=== PATIENT | female | born 1995 | race Caucasian/White ===

== ENCOUNTER 2018-05-20 15:47 | Emergency (ER) | payer OTHER, SELFPAY ==
--- NOTE | 2018-05-20 15:58 | ED.DIZZY ---
HPI - Dizziness <FELIPE Hollis - Last Filed: 05/20/18 21:57> General Chief Complaint: Dizziness Stated Complaint: Dizziness Time Seen by Provider: 05/20/18 15:57 Source: patient Mode of arrival: EMS Limitations: no limitations History of Present Illness HPI Narrative: 22-year-old female with history of having multiple syncopal events over the past couple of months here for complaint of having a presyncopal event this afternoon. She states that she was at the [facility] for a appointment today when she walked outside to her vehicle and she sat down in the vehicle and felt like she was going to have a syncopal episode. She denies that she actually had a loss of any consciousness but felt that she was going to for several minutes. She reports that she walked back to the hospital and they sent her here via ambulance for further evaluation. She denies having any headache. No fevers or chills. No shortness of breath no chest pain. She is currently being and evaluated by Cardiology with a echo cardiogram scheduled for tomorrow. She denies any stressors for her symptoms. She states she has not been working outside she states that she has been having adequate fluid intake. No nausea or vomiting. complaint: near syncope Related Data Home Medications Medication Instructions Recorded Confirmed No Known Home Medications 05/20/18 05/20/18 Allergies Allergy/AdvReac Type Severity Reaction Status Date / Time No Known Drug Allergies Allergy Verified 05/20/18 17:12 Review of Systems <FELIPE Hollis - Last Filed: 05/20/18 21:57> Constitutional Denies chills, Denies fatigue, Denies fever(s), Denies lethargy and Denies weakness Eyes Denies change in vision, Denies eye discharge, Denies irritation and Denies loss of vision ENT Ears, Nose, Mouth, and Throat: Denies change in voice, Denies neck pain and Denies sore throat Cardiovascular Denies dyspnea and Denies dyspnea on exertion Comments: Presyncope Respiratory Denies cough, Denies dyspnea, Denies dyspnea on exertion and Denies wheezing Gastrointestinal Gastrointestinal: Denies abdominal pain, Denies change in bowel habits, Denies diarrhea, Denies nausea and Denies vomiting Genitourinary Denies hematuria, Denies flank pain, Denies urinary incontinence and Denies urinary urgency Musculoskeletal Denies neck pain Integumentary/Breasts Denies pruritus, Denies erythema, Denies rash and Denies wounds Neurologic Denies confusion, Denies loss of vision and Denies weakness Psychiatric Denies anxiety, Denies confusion, Denies depression, Denies homicidal ideation and Denies suicidal ideation Endocrine Denies fatigue and Denies flushing Hematologic/Lymphatic Denies easy bruising Allergic/Immunologic Denies wheezing Exam <FELIPE Hollis - Last Filed: 05/20/18 21:57> Initial Vital Signs Initial Vital Signs: Vital Signs Temperature 99.0 F 05/20/18 15:59 Pulse Rate 79 05/20/18 15:59 Respiratory Rate 18 05/20/18 15:59 Blood Pressure 107/72 05/20/18 15:59 Pulse Oximetry 98 05/20/18 15:59 Const General: cooperative and well developed Nutritional Appearance: well nourished Orientation: alert, awake, oriented x3 and not confused HENAK Head: normal to inspection, normocephalic and atraumatic Mouth: oral mucosae normal, oropharynx normal and moist mucous membranes Eyes Conjunctivae: conjunctivae normal Sclera: sclerae normal Pupils: PERRL EOM: EOM intact bilaterally Neck Neck: normal visual inspection, trachea midline, No lymphadenopathy, No midline deformity and No JVD Lymphatic: No lymphedema Resp Effort & Inspection: normal respiratory effort, able to speak in complete sentences, no respiratory distress and no use of accessory muscles Auscultation: clear to auscultation bilaterally, no rales, no rhonchi and no wheezes Cardio Rate: regular rate Rhythm: regular rhythm Heart Sounds: no click, no gallops, no murmurs and no rubs Skin General: no rashes or lesions noted, No jaundice and No petechiae Neuro General: alert, oriented x3, gait normal and no focal motor deficits Speech: speech normal <Jorge Padilla DO - Last Filed: 05/21/18 01:43> Initial Vital Signs Initial Vital Signs: Vital Signs Temperature 99.0 F 05/20/18 15:59 Pulse Rate 79 05/20/18 15:59 Respiratory Rate 18 05/20/18 15:59 Blood Pressure 107/72 05/20/18 15:59 Pulse Oximetry 98 05/20/18 15:59 Course <FELIPE Hollis - Last Filed: 05/20/18 21:57> Orders Ordered: ED Orders 05/20/18 17:30 Urine Drug Screen, Rapid Stat 05/20/18 17:36 Comprehensive Metabolic Panel Stat Magnesium Stat Troponin & CK Cardiac Panel Stat 05/20/18 18:40 Troponin I Stat Discontinued Medications Sodium Chloride (Normal Saline 0.9%) 1,000 mls @ 1,000 mls/hr IV BOLUS ONE Stop: 05/20/18 17:35 Last Infusion: 05/20/18 18:15 Dose: 0 mls/hr Admin: 05/20/18 17:00 Dose: 1,000 mls/hr Vital Signs - 8 hr 05/20/18 18:39 05/20/18 19:50 05/20/18 19:51 Pulse Rate 56 L 76 Pulse Rate [Orthostatic Lying] 76 Pulse Rate [Orthostatic Sitting] 82 Pulse Rate [Orthostatic Standing] 77 Respiratory Rate 16 14 Blood Pressure [Orthostatic Lying] 109/57 L Blood Pressure [Orthostatic Sitting] 108/66 Blood Pressure [Orthostatic Standing] 93/60 Blood Pressure [Right Arm] 115/49 L 109/57 L Pulse Oximetry 100 100 <Jorge Padilla DO - Last Filed: 05/21/18 01:43> Orders Ordered: ED Orders 05/20/18 17:30 Urine Drug Screen, Rapid Stat 05/20/18 17:36 Comprehensive Metabolic Panel Stat Magnesium Stat Troponin & CK Cardiac Panel Stat 05/20/18 18:40 Troponin I Stat Discontinued Medications Sodium Chloride (Normal Saline 0.9%) 1,000 mls @ 1,000 mls/hr IV BOLUS ONE Stop: 05/20/18 17:35 Last Infusion: 05/20/18 18:15 Dose: 0 mls/hr Admin: 05/20/18 17:00 Dose: 1,000 mls/hr Vital Signs - 8 hr 05/20/18 18:39 05/20/18 19:50 05/20/18 19:51 Pulse Rate 56 L 76 Pulse Rate [Orthostatic Lying] 76 Pulse Rate [Orthostatic Sitting] 82 Pulse Rate [Orthostatic Standing] 77 Respiratory Rate 16 14 Blood Pressure [Orthostatic Lying] 109/57 L Blood Pressure [Orthostatic Sitting] 108/66 Blood Pressure [Orthostatic Standing] 93/60 Blood Pressure [Right Arm] 115/49 L 109/57 L Pulse Oximetry 100 100 MDM - Dizziness <Don ZamoranoFELIPE - Last Filed: 05/20/18 21:57> Lab Data Result diagrams: 05/20/18 16:37 05/20/18 17:36 Lab Results 05/20/18 05/20/18 05/20/18 Range/Units 16:37 17:30 17:36 WBC 12.2 H (4.5-11.0) X10^3/uL RBC 5.19 (4.0-5.2) X10^6/uL Hgb 14.3 (12.0-16.0) g/dL Hct 42.2 (36-46) % MCV 81.4 (80-100) fL MCH 27.5 (26-34) PG MCHC 33.7 (30-36) % RDW 15.1 H (11.6-14.8) % Plt Count 299 (150-400) X10^3/uL Neut % (Auto) 59.4 (50-75) % Lymph % (Auto) 24.9 L (25-40) % [place] % (Auto) 10.0 (3-14) % Eos % (Auto) 5.2 H (2-4) % Baso % (Auto) 0.5 (0-2) % Neut # (Auto) 7200 H (6788-4471) /uL Sodium 142 (137-145) mmol/L Potassium 4.1 (3.4-5.1) mmol/L Chloride 100 (98-107) mmol/L Carbon Dioxide 30 (22-32) mmol/L BUN 12 (7-17) mg/dL Creatinine 0.70 (0.52-1.04) mg/dL Estimated GFR > 60.0 (>60) mL/min BUN/Creatinine Ratio 17.1 (6-22) Glucose 83 (70-100) mg/dL Calcium 9.8 (8.4-10.2) mg/dL Magnesium 1.9 (1.6-2.3) mg/dL Total Bilirubin 0.6 (0.2-1.3) mg/dL AST 25 (14-36) IU/L ALT 20 (9-52) IU/L Alkaline Phosphatase 64 (38-126) U/L Total Creatine Kinase 51 (30-135) U/L CK-MB (CK-2) TNP Troponin I < 0.012 (0.01-0.034) ng/mL Total Protein 8.1 (6.3-8.2) g/dL Albumin 4.8 (3.5-5.0) g/dL Globulin 3.3 (1.7-4.1) g/dL Albumin/Globulin Ratio 1.5 (1.0-2.8) Urine Opiates Screen Negative (Negative) Ur Oxycodone Screen Negative (Negative) Urine Methadone Screen Negative (Negative) Ur Barbiturates Screen Negative (Negative) U Tricyclic Antidepress Negative (Negative) Ur Phencyclidine Scrn Negative (Negative) Ur Amphetamines Screen Negative (Negative) U Methamphetamines Scrn Negative (Negative) Ur MDMA Scrn (Ecstasy) Negative (Negative) U Benzodiazepines Scrn Negative (Negative) Urine Cocaine Screen Negative (Negative) U Marijuana (THC) Screen Negative (Negative) 05/20/18 Range/Units 18:40 WBC (4.5-11.0) X10^3/uL RBC (4.0-5.2) X10^6/uL Hgb (12.0-16.0) g/dL Hct (36-46) % MCV (80-100) fL MCH (26-34) PG MCHC (30-36) % RDW (11.6-14.8) % Plt Count (150-400) X10^3/uL Neut % (Auto) (50-75) % Lymph % (Auto) (25-40) % [place] % (Auto) (3-14) % Eos % (Auto) (2-4) % Baso % (Auto) (0-2) % Neut # (Auto) (9281-2464) /uL Sodium (137-145) mmol/L Potassium (3.4-5.1) mmol/L Chloride (98-107) mmol/L Carbon Dioxide (22-32) mmol/L BUN (7-17) mg/dL Creatinine (0.52-1.04) mg/dL Estimated GFR (>60) mL/min BUN/Creatinine Ratio (6-22) Glucose (70-100) mg/dL Calcium (8.4-10.2) mg/dL Magnesium (1.6-2.3) mg/dL Total Bilirubin (0.2-1.3) mg/dL AST (14-36) IU/L ALT (9-52) IU/L Alkaline Phosphatase (38-126) U/L Total Creatine Kinase (30-135) U/L CK-MB (CK-2) Troponin I < 0.012 (0.01-0.034) ng/mL Total Protein (6.3-8.2) g/dL Albumin (3.5-5.0) g/dL Globulin (1.7-4.1) g/dL Albumin/Globulin Ratio (1.0-2.8) Urine Opiates Screen (Negative) Ur Oxycodone Screen (Negative) Urine Methadone Screen (Negative) Ur Barbiturates Screen (Negative) U Tricyclic Antidepress (Negative) Ur Phencyclidine Scrn (Negative) Ur Amphetamines Screen (Negative) U Methamphetamines Scrn (Negative) Ur MDMA Scrn (Ecstasy) (Negative) U Benzodiazepines Scrn (Negative) Urine Cocaine Screen (Negative) U Marijuana (THC) Screen (Negative) Imaging Data Chest x-ray: Radiologist's impression: Signed Patient: Gil Robison MR#: [id number] : 1995 Acct:[id number] Age/Sex: 22 / F Date of Service: 05/20/18 Loc: ED Accession Number: [id number] Procedure: XR chest 1V Ordering Provider: Don Zamorano PROCEDURE: XR CHEST 1V INDICATIONS: Syncopal episode TECHNIQUE: One view of the chest was acquired. COMPARISON: None. FINDINGS: Surgical changes and devices: None. Lungs and pleura: No pleural effusions or pneumothorax. Lungs are clear. Mediastinum: Mediastinal contours appear normal. Heart size is normal. Bones and chest wall: No suspicious bony lesions. Overlying soft tissues appear unremarkable. IMPRESSION: No acute cardiopulmonary disease. Dictated by: Florencia Magana M.D. on 05/20/2018 at 17:00 Approved by: Florencia Magana M.D. on 05/20/2018 at 17:00 CT scan - head: Radiologist's impression: Patient: Gil Robison MR#: [id number] : 1995 Acct:[id number] Age/Sex: 22 / F Date of Service: 05/20/18 Loc: ED Accession Number: [id number] Procedure: CT head/brain wo con Ordering Provider: Don Zamorano PROCEDURE: CT HEAD/BRAIN WO CON INDICATIONS: Syncopal episode TECHNIQUE: Noncontrast 4.5 mm thick angled axial sections acquired from the foramen magnum to the vertex, with coronal and sagittal reformats. For radiation dose reduction, the following was used: automated exposure control, adjustment of mA and/or kV according to patient size. COMPARISON: None. FINDINGS: Image quality: Excellent. CSF spaces: Basal cisterns are patent. No extra-axial fluid collections. Ventricles are normal in size and shape. Brain: No midline shift. No intracranial masses or hemorrhage. [place]-white matter interface is normal. Skull and face: Calvarium and visualized facial bones are intact, without suspicious lesions. Sinuses: Visualized sinuses and mastoids are clear. IMPRESSION: No acute intracranial disease process. Dictated by: Susie Dennis MD, PhD on 05/20/2018 at 17:08 Approved by: Susie Dennis MD, PhD on 05/20/2018 at 17:10 ECG Data Interpretation: EKG shows sinus bradycardia with incomplete bundle branch block seen on v1 v2 v3. EKG also Shows T-wave inversions in lead III, AVF and V2. No ST elevation or depression. No other ectopy. Ventricular rate of 56. Pr interval of 136. QRS duration of 106. QTC of 392. MDM Narrative Medical decision making narrative: CT of the head was obtained was negative for any acute findings. Chest x-ray was obtained was also negative for any acute findings. EKG shows sinus bradycardia with incomplete bundle branch block and also inverted T-waves. Showed EKG to cardiology who believes that this is not atypical due to younger female and states has not of emergent concern. She has a referral to echo tomorrow for further evaluation. CBC and Chem panel were obtained were unremarkable. Two sets of cardiac enzymes were obtained were unremarkable. Urinalysis was negative for urinary tract infection and also for any drug use. Symptoms are suggestive of vasovagal response. The patient to complete specialty referral and follow up with primary care provider as scheduled. For any worsening symptoms return to the emergency room. <Jorge Padilla DO - Last Filed: 05/21/18 01:43> Lab Data Lab Results 05/20/18 05/20/18 05/20/18 Range/Units 16:37 17:30 17:36 WBC 12.2 H (4.5-11.0) X10^3/uL RBC 5.19 (4.0-5.2) X10^6/uL Hgb 14.3 (12.0-16.0) g/dL Hct 42.2 (36-46) % MCV 81.4 (80-100) fL MCH 27.5 (26-34) PG MCHC 33.7 (30-36) % RDW 15.1 H (11.6-14.8) % Plt Count 299 (150-400) X10^3/uL Neut % (Auto) 59.4 (50-75) % Lymph % (Auto) 24.9 L (25-40) % [place] % (Auto) 10.0 (3-14) % Eos % (Auto) 5.2 H (2-4) % Baso % (Auto) 0.5 (0-2) % Neut # (Auto) 7200 H (3688-1937) /uL Sodium 142 (137-145) mmol/L Potassium 4.1 (3.4-5.1) mmol/L Chloride 100 (98-107) mmol/L Carbon Dioxide 30 (22-32) mmol/L BUN 12 (7-17) mg/dL Creatinine 0.70 (0.52-1.04) mg/dL Estimated GFR > 60.0 (>60) mL/min BUN/Creatinine Ratio 17.1 (6-22) Glucose 83 (70-100) mg/dL Calcium 9.8 (8.4-10.2) mg/dL Magnesium 1.9 (1.6-2.3) mg/dL Total Bilirubin 0.6 (0.2-1.3) mg/dL AST 25 (14-36) IU/L ALT 20 (9-52) IU/L Alkaline Phosphatase 64 (38-126) U/L Total Creatine Kinase 51 (30-135) U/L CK-MB (CK-2) TNP Troponin I < 0.012 (0.01-0.034) ng/mL Total Protein 8.1 (6.3-8.2) g/dL Albumin 4.8 (3.5-5.0) g/dL Globulin 3.3 (1.7-4.1) g/dL Albumin/Globulin Ratio 1.5 (1.0-2.8) Urine Opiates Screen Negative (Negative) Ur Oxycodone Screen Negative (Negative) Urine Methadone Screen Negative (Negative) Ur Barbiturates Screen Negative (Negative) U Tricyclic Antidepress Negative (Negative) Ur Phencyclidine Scrn Negative (Negative) Ur Amphetamines Screen Negative (Negative) U Methamphetamines Scrn Negative (Negative) Ur MDMA Scrn (Ecstasy) Negative (Negative) U Benzodiazepines Scrn Negative (Negative) Urine Cocaine Screen Negative (Negative) U Marijuana (THC) Screen Negative (Negative) 05/20/18 Range/Units 18:40 WBC (4.5-11.0) X10^3/uL RBC (4.0-5.2) X10^6/uL Hgb (12.0-16.0) g/dL Hct (36-46) % MCV (80-100) fL MCH (26-34) PG MCHC (30-36) % RDW (11.6-14.8) % Plt Count (150-400) X10^3/uL Neut % (Auto) (50-75) % Lymph % (Auto) (25-40) % [place] % (Auto) (3-14) % Eos % (Auto) (2-4) % Baso % (Auto) (0-2) % Neut # (Auto) (7812-1630) /uL Sodium (137-145) mmol/L Potassium (3.4-5.1) mmol/L Chloride (98-107) mmol/L Carbon Dioxide (22-32) mmol/L BUN (7-17) mg/dL Creatinine (0.52-1.04) mg/dL Estimated GFR (>60) mL/min BUN/Creatinine Ratio (6-22) Glucose (70-100) mg/dL Calcium (8.4-10.2) mg/dL Magnesium (1.6-2.3) mg/dL Total Bilirubin (0.2-1.3) mg/dL AST (14-36) IU/L ALT (9-52) IU/L Alkaline Phosphatase (38-126) U/L Total Creatine Kinase (30-135) U/L CK-MB (CK-2) Troponin I < 0.012 (0.01-0.034) ng/mL Total Protein (6.3-8.2) g/dL Albumin (3.5-5.0) g/dL Globulin (1.7-4.1) g/dL Albumin/Globulin Ratio (1.0-2.8) Urine Opiates Screen (Negative) Ur Oxycodone Screen (Negative) Urine Methadone Screen (Negative) Ur Barbiturates Screen (Negative) U Tricyclic Antidepress (Negative) Ur Phencyclidine Scrn (Negative) Ur Amphetamines Screen (Negative) U Methamphetamines Scrn (Negative) Ur MDMA Scrn (Ecstasy) (Negative) U Benzodiazepines Scrn (Negative) Urine Cocaine Screen (Negative) U Marijuana (THC) Screen (Negative) Discharge Plan Departure Patient Disposition: Home Clinical Impression: Pre-syncope Discharge Date/Time: 05/20/18 20:03 Interventions: ED Discharge Assessment Last Done: 05/20/18 20:02 Instructions: DI for Syncope in Adults (Fainting) Activity Restrictions/Additional Instructions: Imaging, EKG and laboratory results today were unremarkable. Signs and symptoms are suspicious for vasovagal response causing syncopal episodes over the past couple of months. Follow up with primary care provider. Follow up with specialty referral as scheduled for any worsening symptoms return to the emergency room. Prescriptions: No Action No Known Home Medications RF: 0 Referrals: [facility] Group] <Jorge Padilla DO - Last Filed: 05/21/18 01:43> Cosign ED Attending Lavelle Attestation: I was immediately available in the department for consultation. Documentation has been reviewed. I agree with assessment and plan.
[2018-05-20 15:59] VITALS: BP 107/72; PULSE 79; RESP 18; TEMP 37.2; O2SAT 98; BMI 23.6
--- NOTE | 2018-05-20 16:38 | DI.CT.S_ITS ---
PROCEDURE: CT HEAD/BRAIN WO CON INDICATIONS: Syncopal episode TECHNIQUE: Noncontrast 4.5 mm thick angled axial sections acquired from the foramen magnum to the vertex, with coronal and sagittal reformats. For radiation dose reduction, the following was used: automated exposure control, adjustment of mA and/or kV according to patient size. COMPARISON: None. FINDINGS: Image quality: Excellent. CSF spaces: Basal cisterns are patent. No extra-axial fluid collections. Ventricles are normal in size and shape. Brain: No midline shift. No intracranial masses or hemorrhage. [place]-white matter interface is normal. Skull and face: Calvarium and visualized facial bones are intact, without suspicious lesions. Sinuses: Visualized sinuses and mastoids are clear. IMPRESSION: No acute intracranial disease process. Dictated by: Susie Dennis MD, PhD on 05/20/2018 at 17:08 Approved by: Susie Dennis MD, PhD on 05/20/2018 at 17:10
--- NOTE | 2018-05-20 16:38 | DI.RAD.S_ITS ---
PROCEDURE: XR CHEST 1V INDICATIONS: Syncopal episode TECHNIQUE: One view of the chest was acquired. COMPARISON: None. FINDINGS: Surgical changes and devices: None. Lungs and pleura: No pleural effusions or pneumothorax. Lungs are clear. Mediastinum: Mediastinal contours appear normal. Heart size is normal. Bones and chest wall: No suspicious bony lesions. Overlying soft tissues appear unremarkable. IMPRESSION: No acute cardiopulmonary disease. Dictated by: Florencia Magana M.D. on 05/20/2018 at 17:00 Approved by: Florencia Magana M.D. on 05/20/2018 at 17:00
[2018-05-20] MEDS: SODIUM CHLORIDE 0.9% 1,000 ML 1000 ML IV (17:00)
[2018-05-20 17:10] VITALS: BP 114/73; PULSE 62; RESP 14; O2SAT 98
[2018-05-20 17:43] LABS: Add Manual Diff / Slide Review NO; Basophils Percent Auto 0.5 % (0-2); Eosinophils Percent Auto 5.2 % (2-4); Hematocrit 42.2 % (36-46); Hemoglobin 14.3 g/dL (12.0-16.0); Lymphocytes Percent Auto 24.9 % (25-40); Mean Corpuscular HGB Conc 33.7 % (30-36); Mean Corpuscular Hemoglobin 27.5 PG (26-34); Mean Corpuscular Volume 81.4 fL (80-100); Neutrophils Absolute Auto 7200 /uL (3000-5900); Neutrophils Percent Auto 59.4 % (50-75); Platelet Count 299 X10^3/uL (150-400); Red Blood Cell Count 5.19 X10^6/uL (4.0-5.2); Red Cell Distribution Width 15.1 % (11.6-14.8); White Blood Cell Count 12.2 X10^3/uL (4.5-11.0)
[2018-05-20 17:58] LABS: Alanine Aminotransferase 20 IU/L (9-52); Albumin 4.8 g/dL (3.5-5.0); Albumin Globulin Ratio 1.5 (1.0-2.8); Alkaline Phosphatase 64 U/L (38-126); Aspartate Aminotransferase 25 IU/L (14-36); BUN Creatinine Ratio 17.1 (6-22); Bilirubin Total 0.6 mg/dL (0.2-1.3); Blood Urea Nitrogen 12 mg/dL (7-17); Calcium 9.8 mg/dL (8.4-10.2); Carbon Dioxide 30 mmol/L (22-32); Chloride 100 mmol/L (98-107); Creatine Kinase 51 U/L (30-135); Estimated Glomerular Filt Rate > 60.0 mL/min (>60); Globulin 3.3 g/dL (1.7-4.1); Glucose 83 mg/dL (70-100); HEMOLYSIS < 15 (0-50); Magnesium 1.9 mg/dL (1.6-2.3); Potassium 4.1 mmol/L (3.4-5.1); Sodium 142 mmol/L (137-145); Total Protein 8.1 g/dL (6.3-8.2)
[2018-05-20 18:10] LABS: Troponin I < 0.012 ng/mL (0.01-0.034)
[2018-05-20 18:39] VITALS: BP 115/49; PULSE 56; RESP 16; O2SAT 100
[2018-05-20 19:24] LABS: Troponin I < 0.012 ng/mL (0.01-0.034)
[2018-05-20 19:32] LABS: Urine Amphetamines Negative (Negative); Urine Barbiturates Negative (Negative); Urine Benzodiazepines Negative (Negative); Urine Cocaine Negative (Negative); Urine MDMA Negative (Negative); Urine Methadone Negative (Negative); Urine Methamphetamines Negative (Negative); Urine Morphine/Opi cutoff 2000 Negative (Negative); Urine Oxycodone Negative (Negative); Urine Phencyclidine Negative (Negative); Urine Tetrahydrocannabinol Negative (Negative); Urine Tricyclic Antidepressant Negative (Negative)
[2018-05-20 19:50] VITALS: BP 108/66; BP 109/57; BP 93/60; PULSE 76; PULSE 77; PULSE 82
[2018-05-20 19:51] VITALS: BP 109/57; PULSE 76; RESP 14; O2SAT 100
== END 2018-05-20 20:03 | disposition home or self-care (01) ==
PROVIDERS: Emergency Provider Nurse Practitioner Family
DX: R55 Syncope and collapse (principal)
CPT/HCPCS: 36415; 36591; 70450; 71045; 80053; 80305; 81003; 81025; 82550; 83735; 84484; 85025; 93005; 93010; 96360; 99283; 99285

== ENCOUNTER 2018-06-28 14:49 | Emergency (ER) | payer OTHER, SELFPAY ==
[2018-06-28 14:46] VITALS: BP 121/66; PULSE 84; RESP 16; TEMP 37; O2SAT 98
--- NOTE | 2018-06-28 14:58 | ED_ITS ---
HPI - Syncope <FELIPE Hollis - Last Filed: 06/28/18 22:17> General Chief Complaint: Syncope Stated Complaint: Syncope Time Seen by Provider: 06/28/18 14:56 Source: patient Mode of arrival: ambulatory Limitations: no limitations History of Present Illness HPI narrative: 22-year-old female with history of syncope that is a nonsmoker here for complaint of having syncopal episode earlier today. She has had multiple syncopal episodes over the past year. She has been worked up for these episodes multiple times. She is currently waiting Holter top monitor for continued monitoring and also endocrinology referral. She has had a recent echocardiogram that was negative. She states that she did not eat or drink much this morning and then around lunchtime prior to eating lunch she had a syncopal episode that lasted approximately 5 sec. She states she was made to lay down and then she had a syncopal episode. She did not fall or hit her head. She denies any fevers or chills. No chest pain no shortness of breath. She feels normal at this timeframe. No other concerns Related Data Home Medications Medication Instructions Recorded Confirmed biotin 1 dose PO DAILY 06/28/18 06/28/18 Allergies Allergy/AdvReac Type Severity Reaction Status Date / Time No Known Drug Allergies Allergy Verified 05/20/18 17:12 Review of Systems <FELIPE Hollis - Last Filed: 06/28/18 22:17> Constitutional Denies chills, Denies fever(s), Denies lethargy and Denies weakness Eyes Denies change in vision, Denies eye discharge, Denies irritation and Denies loss of vision ENT Ears, Nose, Mouth, and Throat: Denies change in voice, Denies neck pain and Denies sore throat Cardiovascular Denies chest pain, Reports syncope, Denies irregular heart rhythm, Denies lightheadedness, Denies palpitations, Denies dyspnea, Denies dyspnea on exertion and Denies orthopnea Respiratory Denies cough, Denies dyspnea, Denies dyspnea on exertion and Denies wheezing Gastrointestinal Gastrointestinal: Denies abdominal pain, Denies change in bowel habits, Denies diarrhea, Denies nausea and Denies vomiting Genitourinary Denies hematuria, Denies flank pain, Denies urinary incontinence and Denies urinary urgency Musculoskeletal Denies neck pain Integumentary/Breasts Denies pruritus, Denies erythema, Denies rash and Denies wounds Neurologic Denies confusion, Reports syncope, Denies loss of vision and Denies weakness Psychiatric Denies anxiety, Denies confusion, Denies depression, Denies homicidal ideation and Denies suicidal ideation Endocrine Denies palpitations Hematologic/Lymphatic Denies easy bruising Allergic/Immunologic Denies wheezing Exam <FELIPE Hollis - Last Filed: 06/28/18 22:17> Initial Vital Signs Initial Vital Signs: Vital Signs Temperature 98.6 F 06/28/18 14:46 Pulse Rate 84 06/28/18 14:46 Respiratory Rate 16 06/28/18 14:46 Blood Pressure 121/66 06/28/18 14:46 Pulse Oximetry 98 06/28/18 14:46 Const General: cooperative and well developed Nutritional Appearance: well nourished Orientation: alert, awake, oriented x3 and not confused HENMT Mouth: oral mucosae normal and moist mucous membranes Eyes Conjunctivae: conjunctivae normal Sclera: sclerae normal Pupils: PERRL EOM: EOM intact bilaterally Chest Chest: normal inspection of the chest Resp Effort & Inspection: normal respiratory effort, able to speak in complete sentences, no respiratory distress and no use of accessory muscles Auscultation: clear to auscultation bilaterally, no rales, no rhonchi and no wheezes Cardio Rate: regular rate Rhythm: regular rhythm Heart Sounds: no click, no gallops, no murmurs and no rubs Pulses: normal peripheral pulses GI Inspection: non-distended Palpation: soft, no hepatosplenomegaly, No guarding, No pulsatile mass and No tender Auscultation: normal bowel sounds Skin General: no rashes or lesions noted, No jaundice and No petechiae Neuro General: alert, oriented x3, gait normal and no focal motor deficits Speech: speech normal <Luisa Choudhary DO - Last Filed: 06/29/18 08:50> Initial Vital Signs Initial Vital Signs: Vital Signs Temperature 98.6 F 06/28/18 14:46 Pulse Rate 84 06/28/18 14:46 Respiratory Rate 16 06/28/18 14:46 Blood Pressure 121/66 06/28/18 14:46 Pulse Oximetry 98 06/28/18 14:46 Course <FELIPE Hollis - Last Filed: 06/28/18 22:17> Orders Ordered: ED Orders 06/28/18 15:03 EKG-12 Lead Stat 06/28/18 15:12 Complete Blood Count AUTO DIFF Stat Comprehensive Metabolic Panel Stat 06/28/18 16:30 EKG-12 Lead Stat Vital Signs - 8 hr 06/28/18 14:46 06/28/18 17:18 Temperature 98.6 F Pulse Rate 84 82 Respiratory Rate 16 20 Blood Pressure 121/66 110/68 Pulse Oximetry 98 98 <Luisa Choudhary DO - Last Filed: 06/29/18 08:50> Orders Ordered: ED Orders 06/28/18 15:03 EKG-12 Lead Stat 06/28/18 15:12 Complete Blood Count AUTO DIFF Stat Comprehensive Metabolic Panel Stat 06/28/18 16:30 EKG-12 Lead Stat Vital Signs - 8 hr 06/28/18 14:46 06/28/18 17:18 Temperature 98.6 F Pulse Rate 84 82 Respiratory Rate 16 20 Blood Pressure 121/66 110/68 Pulse Oximetry 98 98 MDM - Syncope <FELIPE Hollis - Last Filed: 06/28/18 22:17> Lab Data Result diagrams: 06/28/18 15:12 06/28/18 15:12 Lab Results 06/28/18 06/28/18 Range/Units 15:12 15:12 WBC 9.1 (4.5-11.0) X10^3/uL RBC 4.83 (4.0-5.2) X10^6/uL Hgb 13.8 (12.0-16.0) g/dL Hct 39.7 (36-46) % MCV 82.2 (80-100) fL MCH 28.6 (26-34) PG MCHC 34.8 (30-36) % RDW 14.3 (11.6-14.8) % Plt Count 263 (150-400) X10^3/uL Neut % (Auto) 56.4 (50-75) % Lymph % (Auto) 25.0 (25-40) % [place] % (Auto) 15.2 H (3-14) % Eos % (Auto) 2.4 (2-4) % Baso % (Auto) 1.0 (0-2) % Neut # (Auto) 5100 (8337-5503) /uL Sodium 142 (137-145) mmol/L Potassium 3.9 (3.4-5.1) mmol/L Chloride 103 (98-107) mmol/L Carbon Dioxide 26 (22-32) mmol/L BUN 12 (7-17) mg/dL Creatinine 0.60 (0.52-1.04) mg/dL Estimated GFR > 60.0 (>60) mL/min BUN/Creatinine Ratio 20.0 (6-22) Glucose 105 H (70-100) mg/dL Calcium 9.5 (8.4-10.2) mg/dL Total Bilirubin 0.5 (0.2-1.3) mg/dL AST 110 H (14-36) IU/L ALT 68 H (9-52) IU/L Alkaline Phosphatase 44 (38-126) U/L Total Creatine Kinase Cancelled CK-MB (CK-2) Cancelled CK-MB (CK-2) Rel Index Cancelled Troponin I Cancelled Total Protein 7.5 (6.3-8.2) g/dL Albumin 4.5 (3.5-5.0) g/dL Globulin 3.0 (1.7-4.1) g/dL Albumin/Globulin Ratio 1.5 (1.0-2.8) Point of Care Testing Test Results Negative Glucose POC 140 Urine Dip Bedside Urine Glucose Negative Bedside Urine Bilirubin - Negative Bedside Urine Ketone - Negative Urine Specific [place] 1.015 Bedside Urine Occult Blood - Negative Bedside Urine pH 7.0 Bedside Urine Protein - Negative Bedside Urine Urobilinogen - Negative Bedside Urine Nitrite - Negative Bedside Urine Leukocytes - Negative Esterase ECG Data Interpretation: EKG shows sinus rhythm no ST elevation or depression. No ectopy. Ventricular rate is 62. Periorbital 138. QRS duration of 97. QTC of 367. EKG appears similar to prior EKG MDM Narrative Medical decision making narrative: due to multiple workups for similar symptoms will hold on doing Full workup today. CBC and Chem panel were obtained and were negative for any acute findings. Urinalysis was negative for and also urinary tract infection. EKG shows sinus rhythm with no ST elevation or depression no ectopy. Differential of syncope due to arrhythmias or due to hypoglycemia. Recommend following up with specialty care as already scheduled and referred to . Follow up with primary care provider next week for re-evaluation. For any worsening symptoms return to the emergency room. <Luisa Choudhary, DO - Last Filed: 06/29/18 08:50> Lab Data Lab Results 06/28/18 06/28/18 Range/Units 15:12 15:12 WBC 9.1 (4.5-11.0) X10^3/uL RBC 4.83 (4.0-5.2) X10^6/uL Hgb 13.8 (12.0-16.0) g/dL Hct 39.7 (36-46) % MCV 82.2 (80-100) fL MCH 28.6 (26-34) PG MCHC 34.8 (30-36) % RDW 14.3 (11.6-14.8) % Plt Count 263 (150-400) X10^3/uL Neut % (Auto) 56.4 (50-75) % Lymph % (Auto) 25.0 (25-40) % [place] % (Auto) 15.2 H (3-14) % Eos % (Auto) 2.4 (2-4) % Baso % (Auto) 1.0 (0-2) % Neut # (Auto) 5100 (8107-5555) /uL Sodium 142 (137-145) mmol/L Potassium 3.9 (3.4-5.1) mmol/L Chloride 103 (98-107) mmol/L Carbon Dioxide 26 (22-32) mmol/L BUN 12 (7-17) mg/dL Creatinine 0.60 (0.52-1.04) mg/dL Estimated GFR > 60.0 (>60) mL/min BUN/Creatinine Ratio 20.0 (6-22) Glucose 105 H (70-100) mg/dL Calcium 9.5 (8.4-10.2) mg/dL Total Bilirubin 0.5 (0.2-1.3) mg/dL AST 110 H (14-36) IU/L ALT 68 H (9-52) IU/L Alkaline Phosphatase 44 (38-126) U/L Total Creatine Kinase Cancelled CK-MB (CK-2) Cancelled CK-MB (CK-2) Rel Index Cancelled Troponin I Cancelled Total Protein 7.5 (6.3-8.2) g/dL Albumin 4.5 (3.5-5.0) g/dL Globulin 3.0 (1.7-4.1) g/dL Albumin/Globulin Ratio 1.5 (1.0-2.8) Point of Care Testing Test Results Negative Glucose POC 140 Urine Dip Bedside Urine Glucose Negative Bedside Urine Bilirubin - Negative Bedside Urine Ketone - Negative Urine Specific [place] 1.015 Bedside Urine Occult Blood - Negative Bedside Urine pH 7.0 Bedside Urine Protein - Negative Bedside Urine Urobilinogen - Negative Bedside Urine Nitrite - Negative Bedside Urine Leukocytes - Negative Esterase ECG Data Attestation: I personally reviewed and interpreted this ECG as follows: Prior ECG tracings: available for review Interpretation: EKG 1.: His sinus rhythm rate 70 T-wave inversion noted in lead 3 and AVF and V3 previous EKG does show T-wave inversions in lead 3 and AVF but not in V3. She does have a incomplete right bundle-branch block which remains unchanged. EKG 2. Persistent T-wave inversions similar to prior Discharge Plan Departure Patient Disposition: Home Clinical Impression: Syncope Discharge Date/Time: 06/28/18 17:19 Interventions: ED Discharge Assessment Last Done: 06/28/18 17:18 Instructions: DI for Syncope in Adults (Fainting) Activity Restrictions/Additional Instructions: laboratory results and EKG today were unremarkable. Unknown etiology of her syncopal events. Recommend following up with specialty care is already scheduled for further evaluation. Follow up with primary care provider next week. For any worsening symptoms return to the emergency room. Prescriptions: No Action biotin 1 dose PO DAILY RF: 0 Referrals: [facility] [Provider Group] <Luisa Choudhary DO - Last Filed: 06/29/18 08:50> Cosign ED Attending [place] Attestation: I was immediately available in the department for consultation. Documentation has been reviewed. I agree with assessment and plan.
[2018-06-28 15:23] LABS: Add Manual Diff / Slide Review NO; Eosinophils Percent Auto 2.4 % (2-4); Hematocrit 39.7 % (36-46); Hemoglobin 13.8 g/dL (12.0-16.0); Mean Corpuscular HGB Conc 34.8 % (30-36); Mean Corpuscular Hemoglobin 28.6 PG (26-34); Mean Corpuscular Volume 82.2 fL (80-100); Monocytes Percent Auto 15.2 % (3-14); Neutrophils Absolute Auto 5100 /uL (3000-5900); Neutrophils Percent Auto 56.4 % (50-75); Platelet Count 263 X10^3/uL (150-400); Red Blood Cell Count 4.83 X10^6/uL (4.0-5.2); Red Cell Distribution Width 14.3 % (11.6-14.8); White Blood Cell Count 9.1 X10^3/uL (4.5-11.0)
[2018-06-28 15:36] LABS: Alanine Aminotransferase 68 IU/L (9-52); Albumin 4.5 g/dL (3.5-5.0); Albumin Globulin Ratio 1.5 (1.0-2.8); Alkaline Phosphatase 44 U/L (38-126); Aspartate Aminotransferase 110 IU/L (14-36); Bilirubin Total 0.5 mg/dL (0.2-1.3); Blood Urea Nitrogen 12 mg/dL (7-17); Calcium 9.5 mg/dL (8.4-10.2); Carbon Dioxide 26 mmol/L (22-32); Chloride 103 mmol/L (98-107); Estimated Glomerular Filt Rate > 60.0 mL/min (>60); Glucose 105 mg/dL (70-100); HEMOLYSIS < 15 (0-50); Potassium 3.9 mmol/L (3.4-5.1); Sodium 142 mmol/L (137-145); Total Protein 7.5 g/dL (6.3-8.2)
[2018-06-28 17:18] VITALS: BP 110/68; PULSE 82; RESP 20; O2SAT 98
== END 2018-06-28 17:19 | disposition home or self-care (01) ==
PROVIDERS: Emergency Provider Nurse Practitioner Family
DX: R55 Syncope and collapse (principal)
CPT/HCPCS: 36415; 80053; 81003; 81025; 85025; 93005; 99283; 99284

== ENCOUNTER → 2019-06-04 12:33 | Outpatient (CLI) | payer OTHER, SELFPAY ==
--- NOTE | 2019-06-04 | DI.MRI.S_ITS ---
PROCEDURE: MR HEAD/BRAIN WO/W CON INDICATIONS: SYNCOPE AND COLLAPSE TECHNIQUE: Noncontrast axial T1 spin echo, axial T2 fast spin echo, sagittal and axial FLAIR, coronal T2 fast spin echo, axial gradient echo, axial diffusion and ADC through the brain. After the administration of contrast, axial and coronal 3D VIBE or T1 spin echo with fat saturation through the brain. COMPARISON: None. FINDINGS: Image quality: Excellent. CSF Spaces: Basal cisterns are patent. No extra-axial fluid collections. Ventricles are normal in size and shape. Brain: No midline shift. No intracranial bleeds or masses. No abnormal intracranial enhancement. The brainstem appears normal. Diffusion-weighted images demonstrate no acute ischemic insults. No chronic ischemic insults. Normal intravascular flow voids are present. Skull and face: Calvarial marrow is normal in signal. Orbits appear normal. Sinuses: Sinuses and mastoids appear clear. IMPRESSION: No trauma found, source of syncopal episode reported collapse is not identified. Dictated by: Edgar Shine M.D. on 06/04/2019 at 13:19 Approved by: Edgar Shine M.D. on 06/04/2019 at 13:20
== END ==
PROVIDERS: Visit Provider Pain Medicine Pain Medicine
DX: R55 Syncope and collapse (principal)
CPT/HCPCS: 70553

== ENCOUNTER 2019-08-18 02:38 | Emergency (ER) | payer OTHER, SELFPAY ==
[2019-08-18 02:41] VITALS: BP 113/73; PULSE 95; RESP 17; TEMP 37.2; O2SAT 98; BMI 23.0
--- NOTE | 2019-08-18 02:44 | DI.RAD.S_ITS ---
PROCEDURE: XR CHEST 1V INDICATIONS: fever, cough TECHNIQUE: One view of the chest was acquired. COMPARISON: [facility], CR, XR CHEST 1V, 05/20/2018, 16:21. FINDINGS: Surgical changes and devices: None. Lungs and pleura: Lungs are clear. No pleural effusions or pneumothorax. Mediastinum: Mediastinal contours appear normal. Heart size is normal. Bones and chest wall: No suspicious bony lesions. Overlying soft tissues appear unremarkable. IMPRESSION: No acute cardiopulmonary disease process. Dictated by: Susie Dennis MD, PhD on 08/18/2019 at 8:22 Approved by: Susie Dennis MD, PhD on 08/18/2019 at 8:23
--- NOTE | 2019-08-18 02:45 | ED_ITS ---
HPI - Fever General Chief Complaint: Fever Stated Complaint: Fever Time Seen by Provider: 08/18/19 02:44 Source: patient Mode of arrival: Ambulatory Limitations: no limitations History of Present Illness HPI Narrative: This is a 24-year-old female comes emergency department with fever. Patient has had nasal congestion with a nonproductive cough and a little bit of chest congestion for the past 2-3 days. She started having fevers over the last 24-48 hours. Overnight she had 102 F she had some Tylenol with mucus relief [id number] medication within an hour. Patient states she just felt ill. She denies severe headaches, she has had fullness in her ears but denies any pain. She denies sore throat. She states she has had a cough but has not really been productive. She denies chest pain or pressure. She does not short of breath but does feel congested in her chest. She has had nausea and vomiting this evening. Denies any diarrhea or constipation. No urinary frequency dysuria or urgency. No rashes. No skin changes. Patient started her menses home several days ago. She denies any other medical issues, denies any prior surgeries. Occasional tobacco, occasional ETOH, denies illicit. Patient is in the [place]. She has not had a flu shot. Related Data Home Medications Medication Instructions Recorded Confirmed No Known Home Medications 08/18/19 08/18/19 Allergies Allergy/AdvReac Type Severity Reaction Status Date / Time No Known Drug Allergies Allergy Verified 08/18/19 02:46 Review of Systems Review of Systems ROS Unobtainable: All systems reviewed & are unremarkable except as noted in HPI and below Constitutional Constitutional: Reports body ache(s), Reports chills, Reports fatigue, Reports fever(s), Denies lethargy, Reports poor appetite and Denies weakness Eyes Eyes: Denies eye discharge Cardiovascular Cardiovascular: Denies chest pain, Denies dyspnea and Denies dyspnea on exertion Respiratory Respiratory: Denies change in phlegm color, Reports chest congestion, Reports cough, Denies hemoptysis, Reports excessive phlegm production, Denies dyspnea, Denies dyspnea on exertion, Denies stridor and Denies wheezing Gastrointestinal Gastrointestinal: Denies abdominal pain, Denies change in bowel habits, Denies diarrhea, Reports nausea and Reports vomiting Genitourinary Genitourinary: Denies hematuria, Denies urinary frequency, Denies dysuria, Denies flank pain, Denies urinary incontinence and Denies urinary urgency Integumentary/Breasts Skin/Breast: Denies erythema and Denies rash Neurologic Neurologic: Denies weakness Endocrine Endocrine: Reports fatigue Allergic/Immunologic Allergic/Immunologic: Denies wheezing Patient History Medical History Syncopal episodes (Acute) Social History Smoking Status: Current some day smoker alcohol intake frequency: a few times a month Substance Use Type: does not use Exam Narrative Exam Narrative: GEN: well nourished, well appearing female, alert and oriented x 3, patient appears to be in mild distress. HEENT: Atraumatic, pupils are equal round reactive to light, extraocular movements are intact, bilateral nares mild clear rhinorrhea, TMs are clear with no fluid, TMs are retracted bilaterally.. Throat is clear without any exudates, erythema, mild bilateral tonsillar enlargement, no uvular deviation HEART: Regular rate and rhythm without murmur, clicks, rubs. LUNGS:Lungs clear to auscultation, no wheezes, rales, crackles, chest moves symmetrically, no tachypnea. ABD:bowel sounds normal, soft, non-tender, no guarding, rebound, rigidity, no masses noted, no hepatosplenomegaly :No CVA tenderness MSCL: Non-tender, no muscle atrophy, muscles strength 5/5 upper and lower extremities, full range of motion, normal gait NEURO:CN 2-12 intact, sensation normal SKIN: No rash, no erythema, no petechiae. no lesions. Initial Vital Signs Initial Vital Signs: Vital Signs Temperature 99.0 F 08/18/19 02:41 Pulse Rate 95 H 08/18/19 02:41 Respiratory Rate 17 08/18/19 02:41 Blood Pressure 113/73 08/18/19 02:41 Pulse Oximetry 98 08/18/19 02:41 Course Orders Ordered: ED Orders 08/18/19 02:44 XR chest 1V Stat Influenza A and B by PCR Rapid Stat Discontinued Medications Ondansetron HCl (Zofran Odt Prepack) 1 bottle MISC SEEINSTR ONE Stop: 08/18/19 03:25 Last Admin: 08/18/19 03:31 Dose: 1 bottle Documented by: ROXANA Vital Signs Vital signs: Vital Signs - 8 hr 08/18/19 02:41 Temperature 99.0 F Pulse Rate 95 H Respiratory Rate 17 Blood Pressure 113/73 Pulse Oximetry 98 MDM - Fever Lab Data Attestation: I reviewed the patient's lab results. Labs: Lab Results 08/18/19 Range/Units 02:44 Influenza A & B (PCR) Negative (Negative) Urine Dip Bedside Urine Glucose Negative Bedside Urine Bilirubin - Negative Bedside Urine Ketone - Negative Urine Specific [place] 1.005 Bedside Urine Occult Blood - Negative Bedside Urine pH 7 Bedside Urine Protein - Negative Bedside Urine Urobilinogen - Negative Bedside Urine Nitrite - Negative Bedside Urine Leukocytes - Negative Esterase Imaging Data Chest x-ray: My impression: No acute process noted. there is a small granuloma in the right lung. MDM Narrative Medical decision making narrative: Patient had a fever at home, vitals are appropriate here. Flu swab was negative, chest x-ray is clear although does shows a granuloma. She did give a urine sample and was tested in is negative. Discussed with patient I suspect she likely has a viral upper respiratory infection. She has been nauseated so given a Zofran prepack and plan for ibuprofen/Tylenol as needed for fevers but we discussed signs and symptoms to return for an strict return precautions. Discharge Plan Departure Patient Disposition: Home Clinical Impression: Fever, URI (upper respiratory infection) Discharge Date/Time: 08/18/19 03:35 Instructions: DI for Viral Upper Respiratory Infection -- Adult Activity Restrictions/Additional Instructions: Follow-up with primary care for recheck if he continued to have elevated temperatures. You may take ibuprofen up to 800 mg every 8 hours and/or Tylenol up to a 1000 mg every 8 hours as needed for fevers greater than 100.4 F You may take Zofran 1 tablet every 6 hours as needed for nausea. Return to the emergency department for persistent fevers, new shortness of breath, chest pain, severe headaches, neck pain, coughing up blood, swelling in her extremities, abdominal pain, persistent vomiting or other new or concerning symptoms. Prescriptions: No Action No Known Home Medications RF: 0
[2019-08-18 03:05] LABS: Influenza A and B by PCR Rapid Negative (Negative)
[2019-08-18] MEDS: ONDANSETRON 4 MG ODT PREPACK 1 BOTTLE MISC (03:31)
== END 2019-08-18 03:35 | disposition home or self-care (01) ==
PROVIDERS: Emergency Provider Emergency Medicine; PCP Preventive Medicine Public Health & General Preventive Medicine
DX: R50.9 Fever, unspecified (principal); J06.9 Acute upper respiratory infection, unspecified
CPT/HCPCS: 71045; 81003; 87502; 99282; 99283

== ENCOUNTER 2020-01-08 20:06 | Emergency (ER) | payer OTHER, SELFPAY ==
[2020-01-08 20:10] VITALS: BP 119/78; PULSE 68; RESP 16; TEMP 36.3; O2SAT 100; BMI 21.9
--- NOTE | 2020-01-08 20:15 | ED.GENADULT ---
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 No other known sick contacts. Her also has similar symptoms. Was told to come in by her medical department Related Data Home Medications Medication Instructions Recorded Confirmed No Known Home Medications 08/18/19 08/18/19 Allergies Allergy/AdvReac Type Severity Reaction Status Date / Time No Known Drug Allergies Allergy Verified 08/18/19 02:46 Review of Systems Constitutional Constitutional: Reports fever(s) and Reports headache(s) ENT Ears, Nose, Mouth, and Throat: Reports headache(s) and Reports sore throat Cardiovascular Cardiovascular: Denies chest pain, Reports dyspnea and Reports dyspnea on exertion Respiratory Respiratory: Reports cough, Reports dyspnea and Reports dyspnea on exertion Gastrointestinal Gastrointestinal: Denies change in stool character and Denies vomiting Musculoskeletal Musculoskeletal: Denies myalgias and Denies arthralgias Integumentary/Breasts Skin/Breast: Denies rash Neurologic Neurologic: Denies behavioral changes and Reports headache(s) Psychiatric Psychiatric: Denies behavioral changes Hematologic/Lymphatic Hematologic/Lymphatic: Denies easy bleeding and Denies easy bruising Patient History Medical History Syncopal episodes (Acute) Social History Smoking Status: Current some day smoker Smoking Status: Current some day smoker alcohol intake frequency: a few times a month Substance Use Type: does not use Exam Initial Vital Signs Initial Vital Signs: Vital Signs Temperature 97.4 F L 01/08/20 20:10 Pulse Rate 68 01/08/20 20:10 Respiratory Rate 16 01/08/20 20:10 Blood Pressure 119/78 01/08/20 20:10 Pulse Oximetry 100 01/08/20 20:10 Const General: cooperative and comfortable HENMT Mouth: oral mucosae normal Resp Effort & Inspection: normal respiratory effort Auscultation: clear to auscultation bilaterally Cardio Rate: regular rate Rhythm: regular rhythm Skin Lesions: no lesions Rashes: no rashes Psych Appearance: grossly normal and well kempt Course Orders Ordered: ED Orders 01/08/20 20:21 XR chest 1V Stat Vital Signs Vital signs: Vital Signs - 8 hr 01/08/20 20:10 Temperature 97.4 F L Pulse Rate 68 Respiratory Rate 16 Blood Pressure 119/78 Pulse Oximetry 100 Medical Decision Making Imaging Data Chest x-ray: Radiologist's Impression: [address] [address] XRay Report Signed Patient: Gil Suarez BMR#: [id number] : 1995Acct:[id number] Age/Sex: 24 / FDate of Service: 01/08/20 Loc: ED Accession Number: [id number] Procedure: XR chest 1V Ordering Provider: Dennis Antoine D.O. PROCEDURE: XR CHEST 1V INDICATIONS: SOB TECHNIQUE: One view of the chest was acquired. COMPARISON: [facility], , XR CHEST 1V, 08/18/2019, 2:43. FINDINGS: Surgical changes and devices: None. Lungs and pleura: Lungs are clear. No pleural effusions or pneumothorax. Mediastinum: Mediastinal contours appear normal. Heart size is normal. Bones and chest wall: No suspicious bony lesions. Overlying soft tissues appear unremarkable. IMPRESSION: 1. No acute cardiopulmonary disease. Dictated by: Edison Phillip M.D. on 01/08/2020 at 20:38 Approved by: Edison Phillip M.D. on 01/08/2020 at 20:38 [facility] Narrative Medical decision making narrative: Patient was tested for COVID-19 chest x-ray is unremarkable. No indication for antibiotics. Vital signs unremarkable. She was given care instructions and return precautions and isolation instructions. She expressed understanding and agreement. Discharge Plan Departure Patient Disposition: Home Clinical Impression: Cough Instructions: Cough Activity Restrictions/Additional Instructions: You have been tested for COVID-19 this text takes a couple days to resolve. We will call you for any positive or negative results. *What to do: * per recommendations from the CDC and the [facility] Department of Health * stay home except to get medical care. Restrict activities outside your home, except for getting medical care. Do not go to work, school, or public areas. Avoid using public transportation, ride sharing, or taxis. * separate yourself from other people in your home. * call ahead before visiting your doctor * Wear a face mask * Cover your coughs and sneezes * Clean your hands often * Avoid sharing household items * Clean all high-touch services every day * Monitor your symptoms and seek prompt medical attention if your illness is worsening, particularly with difficulty in breathing. Discussed continuing home isolation * for individuals with symptoms who are confirmed or suspected cases of COVID-19 and are directed to care for themselves at home, discontinue home isolation under the following conditions: 1. At least 72 hours have passed since recovery, defined as resolution of fever without the use of fever reducing medications, and improvement in respiratory symptoms (cough, shortness of breath) AND, 2. At least 7 days have passed since symptoms 1st appeared Individuals with laboratory confirmed COVID-19 who have not had any symptoms may discontinue home isolation when at least 7 days have passed since the date of their 1st COVID-19 diagnostic test and have had no subsequent illness Prescriptions: No Action No Known Home Medications RF: 0 Referrals: Jose Alejandro Cam [Primary Care Provider] - Stand Alone Forms: Work Release Note
--- NOTE | 2020-01-08 20:21 | DI.RAD.S_ITS ---
PROCEDURE: XR CHEST 1V INDICATIONS: SOB TECHNIQUE: One view of the chest was acquired. COMPARISON: [facility], CR, XR CHEST 1V, 08/18/2019, 2:43. FINDINGS: Surgical changes and devices: None. Lungs and pleura: Lungs are clear. No pleural effusions or pneumothorax. Mediastinum: Mediastinal contours appear normal. Heart size is normal. Bones and chest wall: No suspicious bony lesions. Overlying soft tissues appear unremarkable. IMPRESSION: 1. No acute cardiopulmonary disease. Dictated by: Edison Phillip M.D. on 01/08/2020 at 20:38 Approved by: Edison Phillip M.D. on 01/08/2020 at 20:38
[2020-01-08 21:20] VITALS: BP 110/68; PULSE 63; RESP 16; O2SAT 98
[2020-01-11 05:01] LABS: COVID19 Sendout Not Detected (Not Detected)
== END 2020-01-08 21:20 | disposition home or self-care (01) ==
PROVIDERS: Emergency Provider Emergency Medicine; PCP Preventive Medicine Public Health & General Preventive Medicine
DX: R05 Cough (principal); R06.02 Shortness of breath; J02.9 Acute pharyngitis, unspecified; R51 Headache
CPT/HCPCS: 71045; 87635; 99281; 99283

== ENCOUNTER 2023-05-11 14:53 | Emergency (ER) | payer OTHER, SELFPAY ==
[2023-05-11 15:46] VITALS: BP 121/80; PULSE 119; RESP 20; TEMP 38.5; O2SAT 98
[2023-05-11] MEDS: ACETAMINOPHEN 325 MG TABLET 975 MG PO (16:05)
[2023-05-11 16:47] LABS: Influenza A - CEPHEID Flu A NEGATIVE (NEGATIVE); Influenza B - CEPHEID Flu B NEGATIVE (NEGATIVE); Respiratory Syncytial Virus Negative (Negative)
[2023-05-11 16:52] LABS: COVID-19 CEPHEID 4-PLEX PCR Negative (Negative)
--- NOTE | 2023-05-11 18:52 | DI.RAD.S_ITS ---
PROCEDURE: XR CHEST 1V INDICATIONS: eval for PNA TECHNIQUE: One view of the chest was acquired. COMPARISON: [facility], CR, XR CHEST 1V, 01/08/2020, 20:24. FINDINGS: Surgical changes and devices: None. Lungs and pleura: Lungs are clear. No pleural effusions or pneumothorax. Mediastinum: Mediastinal contours appear normal. Heart size is normal. Bones and chest wall: No suspicious bony lesions. Overlying soft tissues appear unremarkable. IMPRESSION: No acute process. Dictated by: Raman Monterroso M.D. on 05/11/2023 at 19:00 Approved by: Raman Monterroso M.D. on 05/11/2023 at 19:00
--- NOTE | 2023-05-11 19:34 | ED.GENADULT ---
HPI - General Adult General Chief complaint: Upper Respiratory Symptoms Stated complaint: sick Time Seen by Provider: 05/11/23 18:51 Source: patient Mode of arrival: Ambulatory Limitations: no limitations History of Present Illness HPI narrative: Patient is a 27-year-old female who is here for evaluation of almost 1 week of a sore throat, pain with swallowing, enlarged lymph nodes. She also describes having a fever. A dry cough. No problems breathing. No skin rashes. She was seen by her medical department earlier in the week. Was tested for strep and it was negative. Has received no medications. Was told that if her symptoms worsen she needs to come to the emergency department. Related Data Home Medications Medication Instructions Recorded Confirmed No Known Home Medications 08/18/19 08/18/19 Allergies Allergy/AdvReac Type Severity Reaction Status Date / Time pseudoephedrine AdvReac Shakiness Verified 05/11/23 15:52 [From [facility]] Review of Systems Constitutional Constitutional: Reports system reviewed and no additional complaints, except as documented ENT Ears, Nose, Mouth, and Throat: Reports system reviewed and no additional complaints, except as documented Respiratory Respiratory: Reports system reviewed and no additional complaints, except as documented Integumentary/Breasts Skin/Breast: Reports system reviewed and no additional complaints, except as documented Allergic/Immunologic Allergic/Immunologic: Reports system reviewed and no additional complaints, except as documented Patient History Medical History Syncopal episodes Social History Smoking Status: Current some day smoker Smoking Status: Current some day smoker alcohol intake frequency: a few times a month Substance Use Type: does not use Exam Initial Vital Signs Initial Vital Signs: Vital Signs Temperature 101.3 F H 05/11/23 15:46 Pulse Rate 119 H 05/11/23 15:46 Respiratory Rate 20 05/11/23 15:46 Blood Pressure 121/80 05/11/23 15:46 Pulse Oximetry 98 05/11/23 15:46 Oxygen Delivery Method Room Air 05/11/23 15:46 Const General: cooperative, comfortable and No ill appearing HENMT Head: normal to inspection and normocephalic Ears: TM's normal bilaterally Mouth: oral mucosae normal, lip normal and tongue normal Throat: uvula midline and posterior oropharynx abnormal exudates Neck Lymphatic: lymphadenopathy Resp Effort & Inspection: normal respiratory effort Auscultation: clear to auscultation bilaterally Skin General: no rashes or lesions noted Neuro General: patient alert and patient awake Course Orders Ordered: ED Orders 05/11/23 15:53 Covid-19 + FLU A/B + RSV - PCR Stat Strep Grp A by PCR Rapid Stat Throat Culture Stat 05/11/23 18:52 XR chest 1V Stat 05/11/23 19:55 Monotest Stat Discontinued Medications Acetaminophen (Acetaminophen 325 Mg Tablet) 975 mg PO NOW ONE Stop: 05/11/23 15:58 Last Admin: 05/11/23 16:05 Dose: 975 mg Documented By: SUSSY Dexamethasone (Dexamethasone 4 Mg Tablet) 12 mg PO NOW ONE Stop: 05/11/23 19:35 Last Admin: 05/11/23 20:16 Dose: 12 mg Documented By: SUSSY Vital Signs Vital signs: Vital Signs - 8 hr 05/11/23 20:22 Pulse Rate 90 Respiratory Rate 18 Blood Pressure 123/70 Pulse Oximetry 97 Oxygen Delivery Method Room Air Medical Decision Making Lab Data Lab results reviewed: Yes I reviewed the patient's lab results. Labs: Lab Results 05/11/23 05/11/23 05/11/23 Range/Units 15:53 15:53 19:55 SARS-CoV-2 (PCR) Negative (Negative) Monoscreen Positive H (Negative) Influenza A (RT-PCR) Flu a negative (NEGATIVE) Influenza B (RT-PCR) Flu b negative (NEGATIVE) RSV (PCR) Negative (Negative) Group A Strep (PCR) TNP Imaging Data Chest x-ray: Radiologist's Impression: ROCEDURE:? XR CHEST 1V ? INDICATIONS:? eval for PNA ? TECHNIQUE:? One view of the chest was acquired.? ? COMPARISON:? [facility], CR, XR CHEST 1V, 01/08/2020, 20:24. ? FINDINGS:? ? Surgical changes and devices:? None.? ? Lungs and pleura:? Lungs are clear.? No pleural effusions or pneumothorax.? ? Mediastinum:? Mediastinal contours appear normal.? Heart size is normal.? ? Bones and chest wall:? No suspicious bony lesions.? Overlying soft tissues appear unremarkable.? ? IMPRESSION:? No acute process. MDM Narrative Medical decision making narrative: Attempted to perform rapid strep here however the machine kept showing an air. Throat culture was obtained. She does have history and physical exam that would be consistent with a strep throat but did have a negative rapid strep a couple days ago. Her mono test today was positive Which does explain her presenting symptoms. There was no indication for antibiotics. Patient he is maintaining her airway and her secretions. She was given steroids. We discussed mono. Informed her that she needs to contact her medical department for follow-up. 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 Discharge Plan Departure Patient Disposition: Home Clinical Impression: Mononucleosis Instructions: Mononucleosis Activity Restrictions/Additional Instructions: I do recommend that you follow-up with your medical department to discuss your flight status and also your deployability. You can take Tylenol for any fevers or body aches. Be sure that you were trying to increase your fluid intake. Return to the emergency department for new or worsening symptoms. Prescriptions: No Action No Known Home Medications Referrals: Marion Savage DO [Primary Care Provider] - Stand Alone Forms: Patient Portal/API
[2023-05-11 20:12] LABS: Monotest Positive (Negative)
[2023-05-11] MEDS: dexAMETHasone 4 MG TABLET 12 MG PO (20:16)
[2023-05-11 20:22] VITALS: BP 123/70; PULSE 90; RESP 18; O2SAT 97
== END 2023-05-11 20:27 | disposition home or self-care (01) ==
PROVIDERS: Emergency Medicine; Emergency Provider Emergency Medicine
DX: B27.90 Infectious mononucleosis, unspecified without complication (principal); R05.9 Cough, unspecified; Z20.822 Contact with and (suspected) exposure to COVID-19
CPT/HCPCS: 0241U; 36415; 71045; 86318; 87070; 99283

== ENCOUNTER 2023-05-15 09:00 | Emergency (ER) | payer OTHER, SELFPAY ==
[2023-05-15 09:04] VITALS: BP 121/78; PULSE 98; RESP 18; O2SAT 97
--- NOTE | 2023-05-15 09:07 | DI.RAD.S_ITS ---
PROCEDURE: XR CHEST 1V INDICATIONS: chest pain TECHNIQUE: One view of the chest was acquired. COMPARISON: [facility], JORGE A, XR CHEST 1V, 05/11/2023, 18:55. [facility], CR, XR CHEST 1V, 01/08/2020, 20:24. FINDINGS: Surgical changes and devices: None. Lungs and pleura: Lungs are clear. No pleural effusions or pneumothorax. Mediastinum: Mediastinal contours appear normal. Heart size is normal. Bones and chest wall: No suspicious bony lesions. Overlying soft tissues appear unremarkable. IMPRESSION: No acute radiographic abnormality Dictated by: Jose Cruz Lainez M.D. on 05/15/2023 at 9:30 Approved by: Jose Cruz Lainez M.D. on 05/15/2023 at 9:31
[2023-05-15 09:12] VITALS: BP 121/78; PULSE 85; RESP 20; TEMP 36.9; O2SAT 98; BMI 22.3
[2023-05-15 09:22] LABS: Hematocrit 36.4 % (36-46); Hemoglobin 12.7 g/dL (12.0-16.0); Mean Corpuscular Hemoglobin 29.5 PG (26-34); Mean Corpuscular Volume 84.2 fL (80-100); Platelet Count 244 X10^3/uL (150-400); Red Blood Cell Count 4.32 X10^6/uL (4.0-5.2); Red Cell Distribution Width 12.7 % (11.6-14.8); White Blood Cell Count 9.6 X10^3/uL (4.5-11.0)
[2023-05-15 09:23] LABS: Add Manual Diff / Slide Review YES
[2023-05-15] MEDS: SODIUM CHLORIDE 0.9% 1,000 ML 1000 ML IV (09:26)
[2023-05-15 09:30] VITALS: BP 118/81; PULSE 84; RESP 20; O2SAT 97
[2023-05-15 09:30] LABS: PTT Partial Thromboplastin Tim 27 SECONDS (26-36)
[2023-05-15 09:33] LABS: Alanine Aminotransferase 110 IU/L (<35); Albumin 3.9 g/dL (3.5-5.0); Albumin Globulin Ratio 1.2 (1.0-2.8); Alkaline Phosphatase 101 U/L (38-126); Aspartate Aminotransferase 77 IU/L (14-36); BUN Creatinine Ratio 22.2 (6-22); Bilirubin Total 0.4 mg/dL (0.2-1.3); Blood Urea Nitrogen 12 mg/dL (7-17); Calcium 8.9 mg/dL (8.4-10.2); Carbon Dioxide 24 mmol/L (22-32); Chloride 105 mmol/L (98-107); Creatine Kinase < 20 U/L (30-135); Estimated Glomerular Filt Rate > 60 mL/min (>60); Globulin 3.3 g/dL (1.7-4.1); Glucose 110 mg/dL (70-100); HEMOLYSIS < 15 (0-50); Lipase 176 U/L (23-300); Magnesium 2.2 mg/dL (1.6-2.3); Sodium 137 mmol/L (137-145); Total Protein 7.2 g/dL (6.3-8.2)
[2023-05-15 09:36] LABS: Neutrophils Absolute Manual 2304 /uL (3000-5900); RBC Morphology Normal Morphology; Total Cells Counted 100
[2023-05-15 09:58] LABS: Troponin I < 0.012 ng/mL (0.01-0.034)
[2023-05-15 10:05] VITALS: PULSE 62; RESP 20
[2023-05-15 10:06] VITALS: BP 110/68; PULSE 62; RESP 16; O2SAT 100
--- NOTE | 2023-05-15 10:12 | ED.SYNCOPE ---
HPI - Syncope General Chief Complaint: Syncope Stated Complaint: syncope Time Seen by Provider: 05/15/23 09:15 Source: patient and EMS Mode of arrival: EMS Limitations: no limitations History of Present Illness HPI narrative: 27-year-old female who vapes tobacco, has had prior episodes of syncope in the past. Patient presents today with syncopal or near syncopal episode. She states she was walking [place] flight [place] typically they have a ride but the vehicle was not working today. She states she felt lightheaded, weak and just generally unwell. She states that she got dizzy. She does not think she totally lost consciousness but did go down to the ground. Denies hitting her head. Denies any headache, no neck or back pain, no chest pain or shortness of breath. No nausea or vomiting. No diarrhea constipation. She was having nausea and vomiting last Sunday. No dysuria, urgency or frequency. No numbness tingling or weakness of extremities. No swelling of her extremities. Patient states she is feeling much better she was diagnosed here at our facility on 05/11/2023 for mono, she received steroids and states swelling has improved she is had some mild fevers intermittently, she is been taking Tylenol. She is felt tired and just weak in general. She noted walking up the stairs today at work she felt very worn out. Patient states no abdominal back or flank pain. She is not on any daily medications. Denies any surgeries besides tonsillectomy. No prescription medications. No estrogen or oral contraceptives. No recent trauma or injury to her abdomen or flank. Patient states she was having frequent syncopal episodes in the past and then has had a period where she has not had them as frequently. Patient is in process of quitting vaping tobacco, denies regular alcohol or illicit drug use. Related Data Home Medications Medication Instructions Recorded Confirmed No Known Home Medications 08/18/19 08/18/19 Allergies Allergy/AdvReac Type Severity Reaction Status Date / Time Latex, Natural Rubber Allergy Verified 05/15/23 09:11 pseudoephedrine AdvReac Shakiness Verified 05/11/23 15:52 [facility] Review of Systems Review of Systems ROS Unobtainable: All systems reviewed & are unremarkable except as noted in HPI and below Patient History Medical History (Updated 05/15/23 @ 10:36 by Fatmata Potter DO) Syncopal episodes Social History Smoking Status: Current some day smoker Smoking Status: Current some day smoker alcohol intake frequency: a few times a month Substance Use Type: does not use Exam Narrative Exam Narrative: GENERAL: Alert and oriented x three, female in mild distress. HEENT: Head normocephalic, atraumatic, EOMI, pupils reactive, face symmetric, moist mucous membranes NECK: Supple, full range of motion CARDIOVASCULAR: Regular rate and rhythm without murmurs, rubs or gallops. RESPIRATORY: Breath sounds equal bilaterally, no wheezes rales or rhonchi. ABDOMEN: Soft, nontender on examination, no LUQ tenderness. Normoactive bowel sounds all 4 quadrants. No guarding or rebound, rigidity, no mass : No CVA tenderness EXTREMITIES: Normal range of motion, no clubbing or edema. Neurovascularly intact NEUROLOGICAL: Cranial nerves II through XII grossly intact. Moving all extremities SKIN: Warm, dry, no petechiae, no rashes or lesions. Initial Vital Signs Initial Vital Signs: Vital Signs Pulse Rate 98 H 05/15/23 09:04 Respiratory Rate 18 05/15/23 09:04 Blood Pressure 121/78 05/15/23 09:04 Pulse Oximetry 97 05/15/23 09:04 Course Orders Ordered: Discontinued Medications Sodium Chloride (Normal Saline 0.9%) 1,000 mls @ 1,000 mls/hr IV BOLUS ONE Stop: 05/15/23 10:22 Last Infusion: 05/15/23 09:57 Dose: 0 mls/hr Documented By: Admin: 05/15/23 09:26 Dose: 1,000 mls/hr Documented By: SHALOM Vital Signs Vital signs: Vital Signs - 8 hr 05/15/23 09:12 05/15/23 09:04 05/15/23 09:04 Temperature 98.4 F Pulse Rate 85 98 H Respiratory Rate 20 18 Blood Pressure 121/78 121/78 Pulse Oximetry 98 97 Oxygen Delivery Method Room Air 05/15/23 09:30 05/15/23 09:30 05/15/23 10:05 Temperature Pulse Rate 84 62 Respiratory Rate 20 20 Blood Pressure 118/81 Pulse Oximetry 97 Oxygen Delivery Method 05/15/23 10:06 05/15/23 10:06 Temperature Pulse Rate 62 Respiratory Rate 16 Blood Pressure 110/68 Pulse Oximetry 100 Oxygen Delivery Method MDM - Syncope Lab Data 05/15/23 09:15 05/15/23 09:15 Labs: Lab Results 05/15/23 05/15/23 05/15/23 Range/Units 09:15 09:15 09:15 WBC 9.6 (4.5-11.0) X10^3/uL RBC 4.32 (4.0-5.2) X10^6/uL Hgb 12.7 (12.0-16.0) g/dL Hct 36.4 (36-46) % MCV 84.2 (80-100) fL MCH 29.5 (26-34) PG MCHC 35.0 (30-36) % RDW 12.7 (11.6-14.8) % Plt Count 244 (150-400) X10^3/uL Neut % (Auto) Not Reportable Lymph % (Auto) Not Reportable [place] % (Auto) Not Reportable Eos % (Auto) Not Reportable Baso % (Auto) Not Reportable Lymph # (Auto) Not Reportable [place] # (Auto) Not Reportable Baso # (Auto) Not Reportable Total Counted 100 Seg Neutrophils % 24.0 L (38-70) % Lymphocytes % (Manual) 6.0 L (25-45) % Atypical Lymphs % 63.0 H ( - 0) % Monocytes % (Manual) 7.0 (2-11) % Neutrophils # (Manual) 2304 L (0613-4474) /uL RBC Morphology Normal morphology PT 12.0 (10.1-12.7) SECONDS INR 1.0 (0.9-1.3) APTT 27 (26-36) SECONDS Sodium 137 (137-145) mmol/L Potassium 4.0 (3.4-5.1) mmol/L Chloride 105 (98-107) mmol/L Carbon Dioxide 24 (22-32) mmol/L BUN 12 (7-17) mg/dL Creatinine 0.54 (0.52-1.04) mg/dL Estimated GFR > 60 (>60) mL/min BUN/Creatinine Ratio 22.2 H (6-22) Glucose 110 H (70-100) mg/dL Calcium 8.9 (8.4-10.2) mg/dL Magnesium 2.2 (1.6-2.3) mg/dL Total Bilirubin 0.4 (0.2-1.3) mg/dL AST 77 H (14-36) IU/L ALT 110 H (<35) IU/L Alkaline Phosphatase 101 (38-126) U/L Total Creatine Kinase < 20 L (30-135) U/L Troponin I < 0.012 (0.01-0.034) ng/mL Total Protein 7.2 (6.3-8.2) g/dL Albumin 3.9 (3.5-5.0) g/dL Globulin 3.3 (1.7-4.1) g/dL Albumin/Globulin Ratio 1.2 (1.0-2.8) Lipase 176 (23-300) U/L Urine RBC (0-5/HPF) Urine WBC (0-5/HPF) Ur Squamous Epith Cells (0-5/HPF) Calcium Oxalate Crystal Urine Bacteria (None) Urine Mucus (Negative) Ur Culture Indicated? 05/15/23 Range/Units 10:04 WBC (4.5-11.0) X10^3/uL RBC (4.0-5.2) X10^6/uL Hgb (12.0-16.0) g/dL Hct (36-46) % MCV (80-100) fL MCH (26-34) PG MCHC (30-36) % RDW (11.6-14.8) % Plt Count (150-400) X10^3/uL Neut % (Auto) Lymph % (Auto) [place] % (Auto) Eos % (Auto) Baso % (Auto) Lymph # (Auto) [place] # (Auto) Baso # (Auto) Total Counted Seg Neutrophils % (38-70) % Lymphocytes % (Manual) (25-45) % Atypical Lymphs % ( - 0) % Monocytes % (Manual) (2-11) % Neutrophils # (Manual) (2279-3055) /uL RBC Morphology PT (10.1-12.7) SECONDS INR (0.9-1.3) APTT (26-36) SECONDS Sodium (137-145) mmol/L Potassium (3.4-5.1) mmol/L Chloride (98-107) mmol/L Carbon Dioxide (22-32) mmol/L BUN (7-17) mg/dL Creatinine (0.52-1.04) mg/dL Estimated GFR (>60) mL/min BUN/Creatinine Ratio (6-22) Glucose (70-100) mg/dL Calcium (8.4-10.2) mg/dL Magnesium (1.6-2.3) mg/dL Total Bilirubin (0.2-1.3) mg/dL AST (14-36) IU/L ALT (<35) IU/L Alkaline Phosphatase (38-126) U/L Total Creatine Kinase (30-135) U/L Troponin I (0.01-0.034) ng/mL Total Protein (6.3-8.2) g/dL Albumin (3.5-5.0) g/dL Globulin (1.7-4.1) g/dL Albumin/Globulin Ratio (1.0-2.8) Lipase (23-300) U/L Urine RBC None seen (0-5/HPF) Urine WBC 0-1/hpf (0-5/HPF) Ur Squamous Epith Cells 1-5 /hpf (0-5/HPF) Calcium Oxalate Crystal Many H Urine Bacteria Few (2-10) H (None) Urine Mucus 1+ H (Negative) Ur Culture Indicated? Cult not indicated Point of Care Testing Test Results Negative Glucose POC 144 Urine Dip Bedside Urine Glucose Negative Bedside Urine Bilirubin - Negative Bedside Urine Ketone - Negative Urine Specific [place] 1.030 Bedside Urine Occult Blood - Negative Bedside Urine pH 6.0 Bedside Urine Protein +/- 15 Bedside Urine Urobilinogen - Negative Bedside Urine Nitrite - Negative Bedside Urine Leukocytes - Negative Esterase Imaging Data Chest x-ray: Radiologist's Impression: [address] [address] XRay Report Signed Patient: Gil Robison MR#: [id number] : 1995 Acct:[id number] Age/Sex: 27 / F Date of Service: 05/15/23 Loc: ED Accession Number: [id number] ?? Procedure: XR chest 1V Ordering Provider: Fatmata Potter D.O. PROCEDURE:? XR CHEST 1V ? INDICATIONS:? chest pain ? TECHNIQUE:? One view of the chest was acquired.? ? COMPARISON:? [facility], CR, XR CHEST 1V, 05/11/2023, 18:55.? [facility], CR, XR CHEST 1V, 01/08/2020, 20:24. ? FINDINGS:? ? Surgical changes and devices:? None.? ? Lungs and pleura:? Lungs are clear.? No pleural effusions or pneumothorax.? ? Mediastinum:? Mediastinal contours appear normal.? Heart size is normal.? ? Bones and chest wall:? No suspicious bony lesions.? Overlying soft tissues appear unremarkable.? ? IMPRESSION:? No acute radiographic abnormality ? ? Dictated by: Jose Cruz Lainez M.D. on 05/15/2023 at 9:30 ? ? Approved by: Jose Cruz Lainez M.D. on 05/15/2023 at 9:31?? ECG Data Attestation: I personally reviewed and interpreted this ECG as follows: Prior ECG tracings: available for review Interpretation: Sinus rhythm rate of 74 OR 134 QRS of [address]TC [address] No acute [address] elevation depression noted T-waves are inverted in lead 3. This appears similar to 06/28/2018 with incomplete right bundle-branch. No acute or dynamic changes appreciated. MDM Narrative Medical decision making narrative: This is a 27-year-old female recently diagnosed with mono on 05/11/2023 here at our facility. Patient has had right prior episodes of syncope in the past but not for a couple of years. Patient states she is still been feeling under the weather since her diagnosis of mono but improving. Today she was walking a farther distances typical at work and had what sounds like a near syncopal episode she did not think she lost consciousness but did fall to the ground. Labs show white count of 9.6 predominance of lymphocytes, hemoglobin 12.7 crit 36 platelets 244, normal renal function and electrolytes. Coags are negative. AST ALT are slightly elevated which could be seen in the setting of mononucleosis, negative troponin. Negative urine sample and test. Patient's EKG does not show any acute changes. Chest x-ray is negative. Patient has ambulated here in the department without issue. He has a she would a L of fluids. Suspect her recent illness made her more susceptible to syncopal episode. Patient does not have any abdominal pain, nontender on abdominal examination no recent trauma or injuries and no splenomegaly appreciated on examination. Plan for several more days of rest, continue with hydration and follow up or return as needed. Discharge Plan Departure Patient Disposition: Home Clinical Impression: Syncope Instructions: DI for Syncope in Adults (Fainting) Activity Restrictions/Additional Instructions: Follow-up for recheck, I suspect you are syncopal episode today is related to recent illness of mononucleosis. Continue to eat and drink regularly. Please return for new or worsening abdominal back or flank pain, particularly in the left upper abdomen, recurrent passing out, severe headaches, new chest pain or shortness of breath, persistent vomiting, diarrhea, black or bloody stools or other new or concerning changes. Prescriptions: No Action No Known Home Medications Referrals: Marion Savage DO [Primary Care Provider] - Stand Alone Forms: Patient Portal/API, Work Release Note
[2023-05-15 10:33] LABS: Bacteria Urine Few (2-10); Calcium Oxalate Crystals Urine Many; Culture Indicated Urine Cult Not Indicated; Mucus Urine 1+ (Negative); RBC Urine None Seen (0-5/HPF); Squamous Epithelial Cell Urine 1-5 /HPF (0-5/HPF); WBC Urine 0-1/HPF (0-5/HPF)
== END 2023-05-15 10:47 | disposition home or self-care (01) ==
PROVIDERS: Emergency Provider Emergency Medicine
DX: R55 Syncope and collapse (principal); R07.9 Chest pain, unspecified
CPT/HCPCS: 36415; 71045; 80053; 81003; 81015; 81025; 82550; 83690; 83735; 84484; 85007; 85025; 85610; 85730; 93005; 99284